=== PATIENT | female | born 1945 | race Caucasian/White ===

== ENCOUNTER 2022-01-14 22:09 | Emergency (ER) | payer MEDICARE ==
[2022-01-14 22:16] VITALS: BP 139/74; PULSE 65; RESP 22; TEMP 97.9
--- NOTE | 2022-01-14 23:13 | ED ---
Extremity Problem HPI - General Chief complaint: Extremity Injury, Lower Stated complaint: leg pain Time Seen by Provider: 01/14/22 22:20 Source: patient, RN notes reviewed Mode of arrival: ambulatory Limitations: no limitations - History of Present Illness Initial comments: This is a 76-year-old female who presents to the emergency department for left l eg pain. Patient states that earlier today, she began to develop a severe pain behind the left knee that has since progressed. She is having difficulty bearing weight. She has a history of a pulmonary embolism in 2017. No source for the PE was identified at that time. She was on 6 months of anticoagulation, however she is not currently taking any blood thinners. States that she has also started to notice swelling to the left leg. Denies any chest pain or shortness of breath. Denies any fevers, chills, sore throat, cough, dyspnea, chest pain, palpitations, abdominal pain, nausea, vomiting, diarrhea, back pain, or headaches. MD Complaint: extremity pain, extremity swelling History of Same: No Worsens with: weight bearing, walking Associated Symptoms: denies other symptoms - Related Data Allergies Allergy/AdvReac Type Severity Reaction Status Date / Time naproxen Allergy Rash/Hives Verified 01/14/22 22:16 pravastatin Allergy Rash/Hives Verified 01/14/22 22:16 quinapril Allergy Rash/Hives Verified 01/14/22 22:16 Sulfa (Sulfonamide Allergy Nausea & Verified 01/14/22 22:16 Antibiotics) Vomiting Review of Systems ROS Statement: Those systems with pertinent positive or pertinent negative responses have been documented in the HPI. ROS Other: All systems not noted in ROS Statement are negative. Past Medical History Past Medical History: Asthma, Hypertension History of Any Multi-Drug Resistant Organisms: None Reported Past Surgical History: Section, Tonsillectomy Past Psychological History: No Psychological Hx Reported Smoking Status: Never smoker Past Alcohol Use History: None Reported Past Drug Use History: None Reported General Exam Limitations: no limitations General appearance: alert, in no apparent distress Head exam: Present: atraumatic, normocephalic, normal inspection Respiratory exam: Present: normal lung sounds bilaterally. Absent: respiratory distress, wheezes, rales, rhonchi, stridor Cardiovascular Exam: Present: regular rate, normal rhythm, normal heart sounds. Absent: systolic murmur, diastolic murmur, rubs, gallop, clicks Extremities exam: Present: other (Small bulge in the left popliteal fossa and mild diffuse swelling of the left lower extremity. ) Neurological exam: Present: alert, oriented X3, CN II-XII intact Psychiatric exam: Present: normal affect, normal mood Skin exam: Present: warm, dry, intact, normal color. Absent: rash Course Vital Signs 01/14/22 22:09 Temperature 97.9 F Pulse Rate 65 Respiratory 22 Rate Blood Pressure 139/74 O2 Sat by Pulse 96 Oximetry Medical Decision Making - Medical Decision Making This is a 76-year-old female who presents to the emergency department for left leg pain and swelling. Duplex ultrasound obtained, revealing a left popliteal fossa cyst. Findings discussed with the patient. Advised she take [id number] ibuprofen and apply ice behind the knee. She was also provided with Davy bandages to wrap the knee. We also discussed that if symptoms do not improve within a couple of weeks, she may need to have the cyst drained. Return precautions reviewed in depth, the patient is instructed to return to the emergency department with any new, worsening, or concerning symptoms. Patient verbalized understanding. This case was discussed in detail with the attending ED physician. Presentation, findings, and treatment plan discussed in detail as well. - Radiology Data Radiology results: report reviewed, image reviewed Disposition Clinical Impression: Synovial cyst of popliteal space [Aj], left knee Disposition: HOME SELF-CARE Instructions (If sedation given, give patient instructions): Aj Cyst (ED) Additional Instructions: Return to the emergency department with any new, worsening, or concerning symptoms. Apply ice and wrap the knee with an Davy bandage. Take ibuprofen to help with the pain and inflammation. Follow up with your primary care provider when you return to [place] and if the cyst does not improve, this may need to be drained. Is patient prescribed a controlled substance at d/c from ED?: No Referrals: None,Stated [Primary Care Provider] - 1-2 days
--- NOTE | 2022-01-15 00:11 | US ---
EXAMINATION TYPE: US venous doppler duplex LE LT DATE OF EXAM: 01/14/2022 11:44 PM COMPARISON: NONE CLINICAL HISTORY: Pain and swelling behind knee. Left knee pain SIDE PERFORMED: Left TECHNIQUE: The lower extremity deep venous system is examined utilizing real time linear array sonog mylene with graded compression, doppler sonography and color-flow sonography. VESSELS IMAGED: Common Femoral Vein Deep Femoral Vein Greater Saphenous Vein * Femoral Vein Popliteal Vein Small Saphenous Vein * Proximal Calf Veins (* superficial vessels) Left Leg: Appears negative for DVT 4.0 x 0.7 x 3.2cm left popliteal fossa Aj's cyst IMPRESSION: No evidence of deep vein thrombosis in the left leg. Popliteal cyst is noted.
== END 2022-01-15 01:03 | disposition home or self-care (01) ==
LOC: EC 22:09
DX: M66.0 Rupture of popliteal cyst (principal); J45.909 Unspecified asthma, uncomplicated; I10 Essential (primary) hypertension; Z88.2 Allergy status to sulfonamides; Z88.6 Allergy status to analgesic agent; Z88.8 Allergy status to other drugs, medicaments and biological substances
CPT/HCPCS: 99283

== ENCOUNTER 2022-01-16 10:14 | Emergency (ER) | payer MEDICARE ==
[2022-01-16 10:36] VITALS: TEMP 98.2
--- NOTE | 2022-01-16 11:30 | ED ---
Lower Extremity Injury HPI - General Chief Complaint: Extremity Problem,Nontraumatic Stated Complaint: revisit - lt leg pain Time Seen by Provider: 01/16/22 10:47 Source: patient, RN notes reviewed Mode of arrival: ambulatory Limitations: no limitations - History of Present Illness Initial Comments: 76-year-old female presents emergency Department with chief complaint of left knee pain. Patient states started a few days ago came on suddenly was seen in emergency Department an ultrasound which showed Aj's cyst. She had negative DVT. Patient states that she had some worsening discomfort only with ambulation. Denies any paresthesias denies any trauma but states that she has anterior knee swelling. Patient denies any fevers or chills no redness - Related Data Allergies Allergy/AdvReac Type Severity Reaction Status Date / Time naproxen Allergy Rash/Hives Verified 01/16/22 10:34 pravastatin Allergy Rash/Hives Verified 01/16/22 10:34 quinapril Allergy Rash/Hives Verified 01/16/22 10:34 Sulfa (Sulfonamide Allergy Nausea & Verified 01/16/22 10:34 Antibiotics) Vomiting Review of Systems ROS Statement: Those systems with pertinent positive or pertinent negative responses have been documented in the HPI. ROS Other: All systems not noted in ROS Statement are negative. Past Medical History Past Medical History: Asthma, Hypertension History of Any Multi-Drug Resistant Organisms: None Reported Past Surgical History: Section, Tonsillectomy Past Psychological History: No Psychological Hx Reported Smoking Status: Never smoker Past Alcohol Use History: None Reported Past Drug Use History: None Reported General Exam Limitations: no limitations General appearance: alert, in no apparent distress Head exam: Present: atraumatic, normocephalic, normal inspection Eye exam: Present: normal appearance, PERRL, EOMI. Absent: scleral icterus, conjunctival injection, periorbital swelling Neck exam: Present: normal inspection. Absent: tenderness, meningismus, lymphadenopathy Respiratory exam: Present: normal lung sounds bilaterally. Absent: respiratory distress, wheezes, rales, rhonchi, stridor Cardiovascular Exam: Present: regular rate, normal rhythm, normal heart sounds. Absent: systolic murmur, diastolic murmur, rubs, gallop, clicks Extremities exam: Present: other (Left knee there is moderate swelling, pain a pop to the region, neurovascular intact no erythema no increase in warmth pulses are palpable equal bilaterally) Neurological exam: Present: alert Skin exam: Present: warm, dry, intact, normal color. Absent: rash Course Vital Signs 01/16/22 10:34 Temperature 98.2 F Pulse Rate 73 Respiratory 18 Rate Blood Pressure 149/71 O2 Sat by Pulse 97 Oximetry Medical Decision Making - Medical Decision Making 76-year-old female presented emergency department for left knee pain. Patient does have Aj's cyst, joint effusion. Patient will follow-up with orthopedics patient will be Davy wrap, limited weightbearing, icing and anti-inflammatories Disposition Clinical Impression: Synovial cyst of popliteal space [Aj], left knee, Effusion of left knee joint Disposition: HOME SELF-CARE Condition: Stable Instructions (If sedation given, give patient instructions): Knee Pain (ED) Additional Instructions: Please return to the Emergency Department if symptoms worsen or any other concerns. Is patient prescribed a controlled substance at d/c from ED?: No Referrals: None,Stated [Primary Care Provider] - 1-2 days Arturo Guerrero MD [STAFF PHYSICIAN] - 1-2 days Time of Disposition: 12:40
--- NOTE | 2022-01-16 11:40 | XR ---
EXAMINATION TYPE: XR knee complete LT DATE OF EXAM: 01/16/2022 COMPARISON: None HISTORY: Pain TECHNIQUE: 3 view left knee FINDINGS: No acute fracture or dislocation is evident. Minimal fluid may be within the joint space. A nterior superior patellar spur is noted. Anterior tibial plateau spurring is present. MRI can be performed for additional evaluation of soft tissues. IMPRESSION: 1. Mild degenerative changes left knee. 2. Small joint effusion.
[2022-01-16 12:57] VITALS: BP 122/76; PULSE 75; RESP 20
== END 2022-01-16 12:56 | disposition home or self-care (01) ==
LOC: EC 10:14
DX: M71.22 Synovial cyst of popliteal space [Baker], left knee (principal); J45.909 Unspecified asthma, uncomplicated; I10 Essential (primary) hypertension; Z88.6 Allergy status to analgesic agent; Z88.8 Allergy status to other drugs, medicaments and biological substances; Z88.2 Allergy status to sulfonamides
CPT/HCPCS: 99283